=== PATIENT | male | born 1960 | race Caucasian/White ===

== ENCOUNTER 2019-12-05 09:55 | Outpatient (CLI) | payer OTHER ==
[2019-12-11] MEDS ORDERED: ATOR40TA PO (10:30)
[2019-12-11] MEDS ORDERED: ASPI-1169 PO (10:30)
[2019-12-11] MEDS ORDERED: HYDR-3980 PO (10:32)
[2019-12-11] MEDS ORDERED: IBUP-1957 PO (10:32)
== END 2019-12-05 23:59 | disposition home or self-care (01) ==
LOC: LAB 09:55
PROVIDERS: ATTEND Specialist
DX: Z01.812 Encounter for preprocedural laboratory examination (principal); Z20.828 Contact with and (suspected) exposure to other viral communicable diseases
CPT/HCPCS: 87426; C9803

== ENCOUNTER → 2019-12-11 | Day surgery (SDC) | payer OTHER ==
[~2019-12-11] VITALS: Ht 170.2 cm; Wt 69.4 kg
[~2019-12-11] MED LIST: ASPI-1169 PO; ATOR40TA PO; EPINEPHRINE (1:1000) 1 MG/ML AMPUL ONE; ESMOLOL INJ 100 MG/10 ML VIAL IV ONE; FENTANYL PF 100MCG/2ML AMPUL ONE; GLYCOPYRROLATE 0.2 MG/ML VIAL ONE; HYDR-3980 PO; IBUP-1957 PO; LIDOCAINE HCL/MPF 1% 30 ML VIAL IJ ONE; MIDAZOLAM HCL 2 MG/2ML VIAL ONE; Magnesium 1GM/D5W 100ML PREMIX PIGGYBACK IV ONE; ROCURONIUM BROMIDE 50 MG/5 ML ONE; SCOPOLAMINE HBR 1 EA PATCH.TD72 TD ONE; methylPREDNISolone ACETATE 80 MG/ML VIAL ONE
[2019-12-11 06:45] VITALS: BP 123/65
--- NOTE | 2019-12-11 06:45 | NUR ---
admissions officer notes Received Pt for inpatient surgery (R shoulder arthroscopy, acromioplasty and rotator cuff repair) with Dr. Ford. Pt is alert and orientedX4. Respiration is normal. No SOB. No S/S of distress noted. Surgery consent is signed by patient. Pt verbalize understanding. Pt is NPO since last night. Pt skin is intact. MRSA is done. Pt's belonging is checked with ELVA Vanegas. Will endorse to morning for MARITZA.
--- NOTE | 2019-12-11 07:20 | NUR ---
MS RN RECEIVED ON BED, A DAY SURGEY PATIENT, AWAKE,ALERT,ORINETED X4,NOT IN ANY FORM OF DISTRESS, RESPIRATIONS EVEN AND UNLABORED,NO SOB NOTED, LUNGS ARE CLEAR,ABDOMEN SOFT, POSITIVE BOWEL SOUNDS ,ALL NEEDS ATTENDED.
[2019-12-11 08:00] VITALS: BP 127/76
--- NOTE | 2019-12-11 09:43 | NUR ---
MS RN ANESTHESIOLOGIST AT BEDSIDE, WILL GO TO SURGERY OF RIGHT SHOULDER SOON.
--- NOTE | 2019-12-11 09:55 | NUR ---
ms rn patient has vte score of 2 but refused dvt pump a this time, patient is a day surgery patient, will going home after procedure.
[2019-12-11 11:38] LABS: ALBUMIN 3.6 g/dL (3.4-5.0); BILIRUBIN,TOTAL 0.6 mg/dL (0.2-1.0); CALCIUM, SERUM 8.9 mg/dL (8.5-10.1); CREATININE 0.9 mg/dL (0.6-1.3); MAGNESIUM 2.2 mg/dL (1.8-2.4); PHOSPHORUS 2.6 mg/dL (2.5-4.9); POTASSIUM 4.3 mmol/L (3.5-5.1); TOTAL PROTEIN, SERUM 6.6 g/dL (6.4-8.2)
--- NOTE | 2019-12-11 12:05 | NUR ---
ms rn patient went down for surgery.
--- NOTE | 2019-12-11 16:00 | NUR ---
ms rn patient came back from surgery, awake,alert,oriented x4,sx site covered w/ dry dressing,clean and dry, shoulder sling on, denies pain at this time,all needs attended.
--- NOTE | 2019-12-11 16:45 | NUR ---
ms rn v/s kristan, patient went home accompanied by ,in stable condition, discharge instructions given and understood,all needs attended.
== END | disposition home or self-care (01) ==
LOC: DS 06:25 → UNDOADMIN 06:28 → MED 06:28 → UNDODISIN 16:45
PROVIDERS: ATTEND Specialist
DX: M75.41 Impingement syndrome of right shoulder (principal); I25.10 Atherosclerotic heart disease of native coronary artery without angina pectoris; Z79.899 Other long term (current) drug therapy
CPT/HCPCS: 29822; 36415; 80053; 83735; 84100; 86850; 87081; 93307; A4217; J0171; J1040; J2250; J3010; J3475; J3490 ×5; G0378